=== PATIENT | male | born 1955 | race Caucasian/White ===

== ENCOUNTER 2020-09-19 22:41 | Emergency (ER) | payer BC, MEDICARE ==
[2020-09-19 23:00] VITALS: BP 173/85; PULSE 84
--- NOTE | 2020-09-19 23:24 | EDM.PDOC ---
ED HPI GENERAL MEDICAL PROBLEM - General Chief Complaint: Respiratory Problem Stated Complaint: sob headache cough chest pressurre Time Seen by Provider: 09/19/20 23:16 - History of Present Illness INITIAL COMMENTS - FREE TEXT/NARRATIVE: 65-year-old male presents the emergency room with increased cough chest discomfort neck and head pain. Patient is becoming more short of breath and he feels like his COPD is getting a little worse. This morning he awoke with a left neck pain and tightness radiated into his head on the left side and in towards the shoulder. He does have some intermittent chest tightness with this. Prior to this he just noticed increasing breathing difficulties. He has not had any fevers or chills. Patient is heavy smoker still smokes a pack a day. One point he was smoking over 3 packs a day and he has done this most of his life. He uses albuterol at home. Headache Pain Score (Numeric/FACES): 8 - Related Data Allergies Allergy/AdvReac Type Severity Reaction Status Date / Time Penicillins Allergy Severe Redness Verified 09/19/20 23:01 Home Meds: Home Meds Albuterol Sulfate [Proventil Hfa] 2 inh IH Q4HR PRN 09/19/20 [History] Past Medical History Respiratory History: Reports: Asthma, COPD Gastrointestinal History: Reports: Hemorrhoids - Past Surgical History GI Surgical History: Reports: Other (See Below) Other GI Surgeries/Procedures: Hemorrhoid Surgery Social & Family History - Tobacco Use Tobacco Use Status *Q: Current Every Day Tobacco User Years of Tobacco use: 49 Packs/Tins Daily: 1 - Caffeine Use Caffeine Use: Reports: Coffee - Recreational Drug Use Recreational Drug Use: No ED ROS GENERAL - Review of Systems Review Of Systems: See Below Constitutional: Denies: Fever, Chills HEENT: Reports: No Symptoms Respiratory: Reports: Shortness of Breath, Cough, Sputum Cardiovascular: Reports: Chest Pain (Remittent), Dyspnea on Exertion. Denies: Edema, Palpitations GI/Abdominal: Reports: No Symptoms : Reports: No Symptoms Musculoskeletal: Reports: No Symptoms Skin: Reports: No Symptoms Neurological: Reports: No Symptoms ED EXAM, GENERAL - Physical Exam Exam: See Below Exam Limited By: No Limitations General Appearance: Alert, No Apparent Distress Eye Exam: Bilateral Eye: Normal Inspection Ears: Normal External Exam, Normal Canal, Hearing Grossly Normal, Normal TMs Nose: Normal Inspection, Normal Mucosa, No Blood Throat/Mouth: Normal Inspection, Normal Lips, Normal Gums, Normal Oropharynx, Normal Voice, No Airway Compromise, Other (All of his teeth have been removed) Head: Atraumatic, Normocephalic Neck: Normal Inspection, Supple, Tender Lateral (He has left-sided muscle tende rness in the paraspinous muscles and the muscles more anterior). No: Non- Tender, Full Range of Motion, Lymphadenopathy (L), Lymphadenopathy (R), Tender Midline Respiratory/Chest: No Respiratory Distress, Decreased Breath Sounds. No: Crackles, Rales, Rhonchi Cardiovascular: Regular Rate, Rhythm, No Edema, No Murmur GI/Abdominal: Normal Bowel Sounds, Soft, Non-Tender Extremities: Normal Inspection, No Pedal Edema Neurological: Alert, Oriented, Normal Cognition Course - Vital Signs Last Recorded V/S: Last Vital Signs Temp 36.5 C 09/19/20 22:52 Pulse 84 09/19/20 22:52 Resp 24 H 09/19/20 22:52 BP 173/85 H 09/19/20 22:52 Pulse Ox 97 09/19/20 22:52 - Orders/Labs/Meds Orders: Active Orders 24 hr Category Date Time Status Chest 1V Frontal [CR] Stat Exams 09/19/20 23:48 Taken Labs: Laboratory Tests 09/19/20 09/19/20 09/19/20 Range/Units 23:05 23:05 23:05 WBC 8.43 (4.23-9.07) K/mm3 RBC 4.89 (4.63-6.08) M/mm3 Hgb 15.3 (13.7-17.5) gm/dl Hct 45.8 (40.1-51.0) % MCV 93.7 H D (79.0-92.2) fl MCH 31.3 (25.7-32.2) pg MCHC 33.4 (32.2-35.5) g/dl RDW Std Deviation 42.6 (35.1-43.9) fL Plt Count 188 (163-337) K/mm3 MPV 11.1 (9.4-12.3) fl Neutrophils % (Manual) 68 H (40-60) % Band Neutrophils % 1 (0-10) % Lymphocytes % (Manual) 26 (20-40) % Atypical Lymphs % 0 % Immat Monocytes % (Man) 0 Monocytes % (Manual) 4 (2-10) % Eosinophils % (Manual) 0 L (0.8-7.0) % Basophils % (Manual) 1 (0.2-1.2) Metamyelocytes % 0 Myelocytes % 0 Promyelocytes % 0 Blast Cells % 0 Plasma Cell % (Manual) 0 Nucleated RBCs 0.0 % Platelet Estimate Adequate RBC Morph Comment Normal D-Dimer, Quantitative (0.19-0.50) mg/L Sodium 134 L (136-145) mEq/L Potassium 3.6 (3.5-5.1) mEq/L Chloride 98 (98-107) mEq/L Carbon Dioxide 27 (21-32) mEq/L Anion Gap 12.6 (5-15) BUN 12 (7-18) mg/dL Creatinine 1.1 (0.7-1.3) mg/dL Est Cr Clr Drug Dosing 50.01 mL/min Estimated GFR (MDRD) > 60 (>60) mL/min BUN/Creatinine Ratio 10.9 L (14-18) Glucose 100 (80-115) mg/dL Calcium 9.4 (8.5-10.1) mg/dL Ferritin 383 (26-388) ng/ml Total Bilirubin 2.7 H (0.2-1.0) mg/dL Direct Bilirubin (0.0-0.2) mg/dl AST 25 (15-37) U/L ALT 29 (16-63) U/L Alkaline Phosphatase 98 (46-116) U/L Lactate Dehydrogenase 144 (85-227) U/L Troponin I (0.00-0.056) ng/mL C-Reactive Protein 5.6 H* (<1.0) mg/dL Total Protein 7.0 (6.4-8.2) g/dl Albumin 3.3 L (3.4-5.0) g/dl Globulin 3.7 gm/dL Albumin/Globulin Ratio 0.9 L (1-2) SARS-CoV-2 RNA (HOSSEIN) (NEGATIVE) 09/19/20 09/19/20 09/19/20 Range/Units 23:05 23:05 23:55 WBC (4.23-9.07) K/mm3 RBC (4.63-6.08) M/mm3 Hgb (13.7-17.5) gm/dl Hct (40.1-51.0) % MCV (79.0-92.2) fl MCH (25.7-32.2) pg MCHC (32.2-35.5) g/dl RDW Std Deviation (35.1-43.9) fL Plt Count (163-337) K/mm3 MPV (9.4-12.3) fl Neutrophils % (Manual) (40-60) % Band Neutrophils % (0-10) % Lymphocytes % (Manual) (20-40) % Atypical Lymphs % % Immat Monocytes % (Man) Monocytes % (Manual) (2-10) % Eosinophils % (Manual) (0.8-7.0) % Basophils % (Manual) (0.2-1.2) Metamyelocytes % Myelocytes % Promyelocytes % Blast Cells % Plasma Cell % (Manual) Nucleated RBCs % Platelet Estimate RBC Morph Comment D-Dimer, Quantitative 0.27 (0.19-0.50) mg/L Sodium (136-145) mEq/L Potassium (3.5-5.1) mEq/L Chloride (98-107) mEq/L Carbon Dioxide (21-32) mEq/L Anion Gap (5-15) BUN (7-18) mg/dL Creatinine (0.7-1.3) mg/dL Est Cr Clr Drug Dosing mL/min Estimated GFR (MDRD) (>60) mL/min BUN/Creatinine Ratio (14-18) Glucose (80-115) mg/dL Calcium (8.5-10.1) mg/dL Ferritin (26-388) ng/ml Total Bilirubin (0.2-1.0) mg/dL Direct Bilirubin 0.60 H (0.0-0.2) mg/dl AST (15-37) U/L ALT (16-63) U/L Alkaline Phosphatase (46-116) U/L Lactate Dehydrogenase (85-227) U/L Troponin I < 0.017 (0.00-0.056) ng/mL C-Reactive Protein (<1.0) mg/dL Total Protein (6.4-8.2) g/dl Albumin (3.4-5.0) g/dl Globulin gm/dL Albumin/Globulin Ratio (1-2) SARS-CoV-2 RNA (HOSSEIN) (NEGATIVE) 09/20/20 Range/Units 00:43 WBC (4.23-9.07) K/mm3 RBC (4.63-6.08) M/mm3 Hgb (13.7-17.5) gm/dl Hct (40.1-51.0) % MCV (79.0-92.2) fl MCH (25.7-32.2) pg MCHC (32.2-35.5) g/dl RDW Std Deviation (35.1-43.9) fL Plt Count (163-337) K/mm3 MPV (9.4-12.3) fl Neutrophils % (Manual) (40-60) % Band Neutrophils % (0-10) % Lymphocytes % (Manual) (20-40) % Atypical Lymphs % % Immat Monocytes % (Man) Monocytes % (Manual) (2-10) % Eosinophils % (Manual) (0.8-7.0) % Basophils % (Manual) (0.2-1.2) Metamyelocytes % Myelocytes % Promyelocytes % Blast Cells % Plasma Cell % (Manual) Nucleated RBCs % Platelet Estimate RBC Morph Comment D-Dimer, Quantitative (0.19-0.50) mg/L Sodium (136-145) mEq/L Potassium (3.5-5.1) mEq/L Chloride (98-107) mEq/L Carbon Dioxide (21-32) mEq/L Anion Gap (5-15) BUN (7-18) mg/dL Creatinine (0.7-1.3) mg/dL Est Cr Clr Drug Dosing mL/min Estimated GFR (MDRD) (>60) mL/min BUN/Creatinine Ratio (14-18) Glucose (80-115) mg/dL Calcium (8.5-10.1) mg/dL Ferritin (26-388) ng/ml Total Bilirubin (0.2-1.0) mg/dL Direct Bilirubin (0.0-0.2) mg/dl AST (15-37) U/L ALT (16-63) U/L Alkaline Phosphatase (46-116) U/L Lactate Dehydrogenase (85-227) U/L Troponin I (0.00-0.056) ng/mL C-Reactive Protein (<1.0) mg/dL Total Protein (6.4-8.2) g/dl Albumin (3.4-5.0) g/dl Globulin gm/dL Albumin/Globulin Ratio (1-2) SARS-CoV-2 RNA (HOSSEIN) Negative (NEGATIVE) - Re-Assessments/Exams Free Text/Narrative Re-Assessment/Exam: 09/20/20 03:15 The patient is doing okay at this time really is not having any chest pain and systolic neck discomfort. I believe this is muscle strain. His labs are concerning for a bilirubin that is elevated but troponin is not chest x-ray does not show any acute changes. He is not coughing any more than normal and his Covid test is negative. I discussed this with the patient and recommend that he talk to his regular physician about possible stress testing and follow-up on his bilirubin. Departure - Departure Time of Disposition: 03:16 Disposition: Home, Self-Care 01 Clinical Impression: Cervical strain, acute - Discharge Information Referrals: Mariela Owens MD [Primary Care Provider] - Forms: ED Department Discharge Additional Instructions: Return to the emergency room with any questions problems or worsening symptoms. Follow-up with your regular physician this next week discuss your bilirubin being elevated and see if further work-up is needed for this. Discussed the need for further heart stress testing. Start MiraLAX 1 capful daily to help your hemorrhoids get better. Quit or decrease smoking. Sepsis Event Note (ED) - Evaluation Sepsis Screening Result: No Definite Risk - Focused Exam Vital Signs: Vital Signs Temp Pulse Resp BP Pulse Ox 09/19/20 22:52 36.5 C 84 24 H 173/85 H 97 - My Orders Last 24 Hours: My Active Orders 09/19/20 23:48 Chest 1V Frontal [CR] Stat - Assessment/Plan Last 24 Hours: My Active Orders 09/19/20 23:48 Chest 1V Frontal [CR] Stat
--- NOTE | 2020-09-20 09:00 | CR ---
PROCEDURE INFORMATION: Exam: XR Chest, 1 View Exam date and time: 09/19/2020 11:38 PM Age: 65 years old Clinical indication: Cough and shortness of breath TECHNIQUE: Imaging protocol: XR of the chest Views: 1 view. COMPARISON: CR Chest 1V Frontal 07/13/2016 12:42 PM FINDINGS: Lungs: Stable hyperinflation. The lungs are clear without infiltrate or vascular congestion. Pleural space: No pleural effusion. No pneumothorax. Heart/Mediastinum: No cardiomegaly. Bones/joints: Unremarkable. IMPRESSION: Hyperinflation without acute interval findings evident Thank you for allowing us to participate in the care of your patient. Dictated and Authenticated by: Damaris Rodríguez MD 09/20/2020 1:35 AM Central Time ([place] & [place]) DEMAR
== END 2020-09-20 03:30 | disposition home or self-care (01) ==
LOC: JD.ED 22:41
DX: S16.1XXA Strain of muscle, fascia and tendon at neck level, initial encounter (principal); J44.9 Chronic obstructive pulmonary disease, unspecified; F17.210 Nicotine dependence, cigarettes, uncomplicated; Z88.0 Allergy status to penicillin; Z20.828 Contact with and (suspected) exposure to other viral communicable diseases; X58.XXXA Exposure to other specified factors, initial encounter
CPT/HCPCS: 36415; 71045; 80053; 82248; 82728; 83615; 84484; 85007; 85027; 85379; 86140; 99284; U0002; 93010; 99282

== ENCOUNTER 2021-08-26 20:45 | Emergency (ER) | payer MEDICARE ==
[2021-08-26 20:59] VITALS: BP 90/64; PULSE 134
[2021-08-26] MEDS ORDERED: diphenhydrAMINE 50 MG/ML SDV IVPUSH PRN (22:01)
[2021-08-26] MEDS ORDERED: Famotidine 20 MG/2 ML SDV IVPUSH PRN (22:01)
[2021-08-26] MEDS ORDERED: methylPREDNISolone Sodium Succinate 125 MG/2 ML SDV IVPUSH PRN (22:01)
[2021-08-26] MEDS ORDERED: EPINEPHrine 1 MG/ML SDV IM PRN (22:01)
[2021-08-26] MEDS ORDERED: Sodium Chloride 0.9% 10 ML Syringe FLUSH PRN (22:01)
--- NOTE | 2021-08-26 22:09 | EDM.PDOC ---
ED HPI GENERAL MEDICAL PROBLEM - General Chief Complaint: Respiratory Problem Stated Complaint: DIFFICULTY BREATHING Time Seen by Provider: 08/26/21 21:53 Source of Information: Reports: Patient, RN Notes Reviewed History Limitations: Reports: No Limitations - History of Present Illness INITIAL COMMENTS - FREE TEXT/NARRATIVE: Patient is a 66-year-old male presents to the ER for evaluation of his COVID-19 and difficulty breathing. Patient does have a history of COPD as well. He is on albuterol and a chronic steroid inhaler. States that he was going to see his primary care provider sometime this week but notes that he felt sick enough yesterday that he went to the walk-in clinic. States he was tested for COVID- 19, and given 2 different medications for his underlying COPD and discharged home. He was called today and they did tell him that he was Covid positive. States that it was very hard to breathe so he came to the ER for evaluation. Patient has been sick since about Tuesday, August 24, 2021. Patient is not vaccinated for COVID-19. States he did not think he had COVID last year as well. - Related Data Allergies Allergy/AdvReac Type Severity Reaction Status Date / Time Penicillins Allergy Severe Redness Verified 09/19/20 23:01 Home Meds: Home Meds Albuterol Sulfate [Proventil Hfa] 2 inh IH Q4HR PRN 09/19/20 [History] Fluticasone/Umeclidin/Vilanter [Trelegy Ellipta 200-62.5-25] 1 puff INH DAILY 08/26/21 [History] predniSONE [Prednisone] 0 mg PO DAILY 08/26/21 [History] Past Medical History Respiratory History: Reports: Asthma, COPD Gastrointestinal History: Reports: Hemorrhoids - Past Surgical History GI Surgical History: Reports: Other (See Below) Other GI Surgeries/Procedures: Hemorrhoid Surgery Social & Family History - Caffeine Use Caffeine Use: Reports: Coffee ED ROS GENERAL - Review of Systems Review Of Systems: Comprehensive ROS is negative, except as noted in HPI. ED EXAM, GENERAL - Physical Exam Exam: See Below Exam Limited By: No Limitations General Appearance: Alert, WD/WN, No Apparent Distress Respiratory/Chest: No Respiratory Distress, Lungs Clear, No Accessory Muscle Use, Chest Non-Tender, Decreased Breath Sounds (bilaterally) Cardiovascular: Normal Peripheral Pulses, Regular Rate, Rhythm, No Edema Extremities: Normal Inspection, Normal Capillary Refill Neurological: Alert, Oriented, Normal Cognition, No Motor/Sensory Deficits Psychiatric: Normal Affect, Normal Mood Skin Exam: Warm, Dry, Intact, Normal Color, No Rash Course - Vital Signs Last Recorded V/S: Last Vital Signs Temp 98.4 F 08/26/21 20:56 Pulse 134 H 08/26/21 20:56 Resp 20 08/26/21 20:56 BP 90/64 08/26/21 20:56 Pulse Ox 93 L 08/26/21 20:56 - Orders/Labs/Meds Orders: Active Orders 24 hr Category Date Time Status Peripheral IV Care [RC] . DIRECTED Care 08/26/21 22:01 Active Vital Signs [RC] Q15M Care 08/26/21 22:01 Active Chest 1V Frontal [CR] Stat Exams 08/26/21 22:00 Taken EPINEPHrine [Adrenalin] Med 08/26/21 22:01 Active 0.3 mg IM ASDIRECTED PRN Famotidine [Pepcid] Med 08/26/21 22:01 Active 20 mg IVPUSH ASDIRECTED PRN Sodium Chloride 0.9% [Saline Flush] Med 08/26/21 22:01 Active 10 ml FLUSH ASDIRECTED PRN Sodium Chloride 0.9% [Saline Flush] Med 08/26/21 22:15 Active 30 ml FLUSH ASDIRECTED diphenhydrAMINE [Benadryl] Med 08/26/21 22:01 Active 50 mg IVPUSH ASDIRECTED PRN methylPREDNISolone Sod Succ [Solu-MEDROL] Med 08/26/21 22:01 Active 125 mg IVPUSH ASDIRECTED PRN Peripheral IV Insertion Adult [OM.PC] Routine Oth 08/26/21 22:01 Ordered Medication Orders Diphenhydramine HCl (Diphenhydramine 50 Mg/Ml Sdv) 50 mg IVPUSH ASDIRECTED PRN PRN Reason: hypersensitivity reaction Epinephrine HCl (Epinephrine 1 Mg/Ml Sdv) 0.3 mg IM ASDIRECTED PRN PRN Reason: hypersensitivity reaction Famotidine (Famotidine 20 Mg/2 Ml Sdv) 20 mg IVPUSH ASDIRECTED PRN PRN Reason: hypersensitivity reaction Methylprednisolone Sodium Succinate (Methylprednisolone Sodium Succinate 125 Mg/2 Ml Sdv) 125 mg IVPUSH ASDIRECTED PRN PRN Reason: hypersensitivity reaction Sodium Chloride (Sodium Chloride 0.9% 10 Ml Syringe) 30 ml FLUSH ASDIRECTED LOTTIE Sodium Chloride (Sodium Chloride 0.9% 10 Ml Syringe) 10 ml FLUSH ASDIRECTED PRN PRN Reason: Keep Vein Open Labs: Laboratory Tests 08/26/21 08/26/21 08/26/21 Range/Units 22:18 22:18 22:18 WBC 4.95 (4.23-9.07) K/mm3 RBC 4.98 (4.63-6.08) M/mm3 Hgb 16.2 (13.7-17.5) gm/dl Hct 46.9 (40.1-51.0) % MCV 94.2 H (79.0-92.2) fl MCH 32.5 H (25.7-32.2) pg MCHC 34.5 (32.2-35.5) g/dl RDW Std Deviation 44.5 H (35.1-43.9) fL Plt Count 134 L (163-337) K/mm3 MPV 10.4 (9.4-12.3) fl Neut % (Auto) 67.5 (34.0-67.9) % Lymph % (Auto) 23.0 (21.8-53.1) % Carlton % (Auto) 9.1 (5.3-12.2) % Eos % (Auto) 0 L (0.8-7.0) Baso % (Auto) 0.2 (0.1-1.2) % Neut # (Auto) 3.34 (1.78-5.38) K/mm3 Lymph # (Auto) 1.14 L (1.32-3.57) K/mm3 Carlton # (Auto) 0.45 (0.30-0.82) K/mm3 Eos # (Auto) 0.00 L (0.04-0.54) K/mm3 Baso # (Auto) 0.01 (0.01-0.08) K/mm3 Sodium 133 L (136-145) mEq/L Potassium 4.1 (3.5-5.1) mEq/L Chloride 97 L (98-107) mEq/L Carbon Dioxide 29 (21-32) mEq/L Anion Gap 11.1 (5-15) BUN 7 (7-18) mg/dL Creatinine 1.3 (0.7-1.3) mg/dL Est Cr Clr Drug Dosing 40.68 mL/min Estimated GFR (MDRD) 55 (>60) mL/min BUN/Creatinine Ratio 5.4 L (14-18) Glucose 104 H (70-99) mg/dL Calcium 8.8 (8.5-10.1) mg/dL Magnesium 1.5 L (1.8-2.4) mg/dL Total Bilirubin 0.7 (0.2-1.0) mg/dL AST 47 H (15-37) U/L ALT 39 (16-63) U/L Alkaline Phosphatase 96 (46-116) U/L C-Reactive Protein <0.2 (<1.0) mg/dL Total Protein 6.8 (6.4-8.2) g/dl Albumin 3.1 L (3.4-5.0) g/dl Globulin 3.7 gm/dL Albumin/Globulin Ratio 0.8 L (1-2) Meds: Medications Generic Name Dose Route Start Last Admin Trade Name Freq PRN Reason Stop Dose Admin Diphenhydramine HCl 50 mg 08/26/21 22:01 Diphenhydramine 50 Mg/Ml Sdv IVPUSH ASDIRECTED PRN hypersensitivity reaction Epinephrine HCl 0.3 mg 08/26/21 22:01 Epinephrine 1 Mg/Ml Sdv IM ASDIRECTED PRN hypersensitivity reaction Famotidine 20 mg 08/26/21 22:01 Famotidine 20 Mg/2 Ml Sdv IVPUSH ASDIRECTED PRN hypersensitivity reaction Methylprednisolone Sodium Succinate 125 mg 08/26/21 22:01 Methylprednisolone Sodium Succinate 125 Mg/2 Ml Sdv IVPUSH ASDIRECTED PRN hypersensitivity reaction Sodium Chloride 30 ml 08/26/21 22:15 Sodium Chloride 0.9% 10 Ml Syringe FLUSH ASDIRECTED LOTTIE Sodium Chloride 10 ml 08/26/21 22:01 Sodium Chloride 0.9% 10 Ml Syringe FLUSH ASDIRECTED PRN Keep Vein Open Discontinued Medications Generic Name Dose Route Start Last Admin Trade Name Freq PRN Reason Stop Dose Admin CASIRIVIMAB/IMDEVIMAB 10 ml/ 110 mls @ 220 mls/hr 08/26/21 22:01 08/26/21 22:40 Sodium Chloride IV 08/26/21 22:30 220 mls/hr ONETIME ONE Administration - Re-Assessments/Exams Free Text/Narrative Re-Assessment/Exam: 08/26/21 22:08 Patient presents to the ER for the evaluation of his COVID-19. I spoke with the patient to provide information about monoclonal antibody treatment. I offered them the "Patient and caregiver [facility] monoclonal antibody fact sheet" to read and review. I stated that the drug has been approved by an emergency use author ization (EUA) process and has not been fully FDA reviewed or approved. The patient meets the EUA requirements. I discussed there are other potential treatment options that are currently not FDA approved to treat COVID-19. I did offer an opportunity to ask questions and all questions were answered. The patient voiced understanding and agreed to proceed with the treatment. We will also get labs as well for ongoing management along with a chest x-ray. 08/26/21 22:[address] on Oxygen at the time of triage d/t his respiratory difficulty. He was not hypoxic on RA, O2 sats were 92-93%. Triage nurse did place him on oxygen at that time, and he has been titrated down to 2LNC and O2 sats are stable at 98%, will continue to try to titrate down. 08/26/21 23:11 Patient was placed back on to room air, and his O2 sats did get as low as about 91% on room air. RT did come over and tested him for qualification for oxygen through [facility] rehab services, and he did not meet qualifications as his oxygen level did not go below 88%. Patient states that he is subjectively feels better with oxygen and is willing to self-pay. I did call [facility] through [facility] in [place] and they think they would be able to accommodate this patient. They were requesting a facesheet to be faxed, and that he contact them tomorrow or that they will reach out tomorrow to get him set up. Departure - Departure Time of Disposition: 23:13 Disposition: Home, Self-Care 01 Condition: Good Clinical Impression: COVID-19, COPD exacerbation - Discharge Information *PRESCRIPTION DRUG MONITORING PROGRAM REVIEWED*: No *COPY OF PRESCRIPTION DRUG MONITORING REPORT IN PATIENT TROY: No Instructions: 10 Things You Can Do to Manage Your COVID-19 Symptoms at Home - [facility] (05/16/2021) Referrals: Mariela Owens MD [Primary Care Provider] - Forms: ED Department Discharge Additional Instructions: You were seen in the ER today for ongoing and/or worsening respiratory symptoms. Your chest x-ray showed no signs of pneumonia at this time. Your oxygen level was still above 90% on room air, but you did indicate that having oxygen made you subjectively breathe better, and that your dizziness and chest pressure went away. [facility] through [facility] in [place] has been contacted, and they would be able to set you up for self-pay oxygen. You will need to contact them tomorrow and possibly go to [place] to get this set up. Their telephone number is [phone]. They have been given your contact information as well, and they may be reaching out to you tomorrow. [facility] is located in [place], [place] at [address] You will likely have to go to [place] tomorrow in order to receive these supplies. You were given IV monoclonal antibody therapy at today's visit, this medication is thought to work by making you a little less sick, and helps to decrease the length of time that you are sick. Please try to increase your oral fluid intake, and eat multiple small meals throughout the day, to keep yourself healthy. You need to keep yourself nourished in order to fight off this disease. You can try a liquid diet like gatorade/powerade as well to get your electrolytes. You may take 500 mg Tylenol every hours 6 hours for pain/fever relief. Do not exceed 4000 mg Tylenol in a 24-hour time span. However, running a fever is your body's natural response to illness, and it allows the body to develop antibodies to disease, we are recommending trying to limit the use of Tylenol as much as possible to allow your body's natural immune response. Recommend you obtain a pulse oximeter and monitor your oxygen levels at home, you should place the monitor on your finger, and sit in a calm, quiet position for a few minutes and then record the number that is on the screen. If this consistently below 90% on room air without movement, this would be cause for concern to come back to the hospital for further management of your COVID-19 disease. Continue all other medication as previously prescribed by your regular care provider. Please follow all guidance set forth from [facility] of [facility], regarding isolation purposes for your disease process. General isolation times are 10 days from when you started being symptomatic. Sepsis Event Note (ED) - Focused Exam Vital Signs: Vital Signs Temp Pulse Resp BP Pulse Ox 08/26/21 20:56 98.4 F 134 H 20 90/64 93 L - My Orders Last 24 Hours: My Active Orders 08/26/21 22:00 Chest 1V Frontal [CR] Stat 08/26/21 22:01 Peripheral IV Care [RC] . DIRECTED Vital Signs [RC] Q15M EPINEPHrine [Adrenalin] 0.3 mg IM ASDIRECTED PRN Famotidine [Pepcid] 20 mg IVPUSH ASDIRECTED PRN Sodium Chloride 0.9% [Saline Flush] 10 ml FLUSH ASDIRECTED PRN diphenhydrAMINE [Benadryl] 50 mg IVPUSH ASDIRECTED PRN methylPREDNISolone Sod Succ [Solu-MEDROL] 125 mg IVPUSH ASDIRECTED PRN Peripheral IV Insertion Adult [OM.PC] Routine 08/26/21 22:15 Sodium Chloride 0.9% [Saline Flush] 30 ml FLUSH ASDIRECTED - Assessment/Plan Last 24 Hours: My Active Orders 08/26/21 22:00 Chest 1V Frontal [CR] Stat 08/26/21 22:01 Peripheral IV Care [RC] . DIRECTED Vital Signs [RC] Q15M EPINEPHrine [Adrenalin] 0.3 mg IM ASDIRECTED PRN Famotidine [Pepcid] 20 mg IVPUSH ASDIRECTED PRN Sodium Chloride 0.9% [Saline Flush] 10 ml FLUSH ASDIRECTED PRN diphenhydrAMINE [Benadryl] 50 mg IVPUSH ASDIRECTED PRN methylPREDNISolone Sod Succ [Solu-MEDROL] 125 mg IVPUSH ASDIRECTED PRN Peripheral IV Insertion Adult [OM.PC] Routine 08/26/21 22:15 Sodium Chloride 0.9% [Saline Flush] 30 ml FLUSH ASDIRECTED
[2021-08-26] MEDS ORDERED: Sodium Chloride 0.9% 10 ML Syringe FLUSH SCH (22:15)
--- NOTE | 2021-08-27 07:23 | CR ---
Chest: Portable view of the chest was obtained. Comparison: Prior chest x-ray of 07/13/16. Lung dixon are hyperinflated compatible with emphysematous change. Lungs are clear with no acute parenchymal change. Heart size and mediastinum are normal. Bony structures are osteopenic. Impression: 1. Emphysematous change. 2. Nothing acute is otherwise seen on portable chest x-ray. Diagnostic code #2
== END 2021-08-27 01:05 | disposition home or self-care (01) ==
LOC: JD.ED 20:45
DX: U07.1 COVID-19 (principal); J44.1 Chronic obstructive pulmonary disease with (acute) exacerbation; Z88.0 Allergy status to penicillin; Z79.899 Other long term (current) drug therapy
CPT/HCPCS: 36415; 71045; 80053; 83735; 85025; 86140; 99285; M0243; Q0243

== ENCOUNTER 2022-08-16 09:10 | Emergency (ER) | payer MEDICARE ==
[2022-08-16 10:01] VITALS: BP 132/89; PULSE 88
[2022-08-16] MEDS ORDERED: Albuterol/Ipratropium 3.0-0.5 MG/3 ML Neb Soln NEB ONE ×3 (10:20→11:24)
[2022-08-16] MEDS ORDERED: methylPREDNISolone Sodium Succinate 125 MG/2 ML SDV IVPUSH ONE (10:21)
== END 2022-08-16 12:56 | disposition home or self-care (01) ==
LOC: JD.ED 09:10
DX: J44.1 Chronic obstructive pulmonary disease with (acute) exacerbation (principal); Z72.0 Tobacco use; Z88.0 Allergy status to penicillin
CPT/HCPCS: 36415; 71046; 80053; 83880; 85025; 93005; 94640; 96374; 99285; J2930; J7620-GY

== ENCOUNTER 2024-11-15 14:45 | Emergency (ER) | payer MEDICARE, BC ==
[2024-11-15 15:38] VITALS: PULSE 74
[2024-11-15 16:15] LABS: BASOPHILS ABSOLUTE AUTO 0.1 K/mm3 (0.0-0.2); EOSINOPHILS ABSOLUTE AUTO 0.1 K/mm3 (0.0-0.4); EOSINOPHILS PERCENT AUTO 1.6 % (0.0-6.0); HEMATOCRIT 37.1 % (42.0-52.0); HEMOGLOBIN 12.3 gm/dl (14.0-18.0); IMMATURE GRAN ABSOLUTE AUTO 0.02 K/mm3 (0.00-0.05); IMMATURE GRAN PERCENT AUTO 0.3 % (0.0-0.4); LYMPHOCYTES ABSOLUTE AUTO 1.6 K/mm3 (1.0-4.8); LYMPHOCYTES PERCENT AUTO 25.1 % (24.0-44.0); MEAN CORPUSCULAR HEMOGLOBIN 31.9 pg (28.0-32.0); MEAN CORPUSCULAR HGB CONC 33.2 g/dl (32.0-36.0); MEAN CORPUSCULAR VOLUME 96.1 fl (83.0-99.0); MEAN PLATELET VOLUME 9.8 fl (9.4-12.4); MONOCYTES ABSOLUTE AUTO 0.6 K/mm3 (0.0-0.8); MONOCYTES PERCENT AUTO 10.3 % (0.0-8.0); NEUTROPHILS ABSOLUTE AUTO 3.8 K/mm3 (1.8-7.7); NEUTROPHILS PERCENT AUTO 61.7 % (41.0-71.0); PLATELET COUNT,PLT 168 K/mm3 (150-400); RED BLOOD CELL COUNT 3.86 M/mm3 (4.52-5.90); WHITE BLOOD CELL COUNT,WBC 6.21 K/mm3 (3.9-11.3)
[2024-11-15 16:51] LABS: A/G RATIO 0.9 (1-2); ALBUMIN 2.9 g/dl (3.4-5.0); ANION GAP 9.1 (5-15); BILIRUBIN TOTAL 0.7 mg/dL (0.2-1.0); BUN/CREATININE RATIO 7.8 (14-18); CALCIUM 8.7 mg/dL (8.5-10.1); CREATININE 0.9 mg/dL (0.7-1.3); EST CRCL DRUG DOSING (CG) 55.42 mL/min; POTASSIUM,K 4.1 mEq/L (3.5-5.1); PROTEIN TOTAL,TP 6.1 g/dl (6.4-8.2)
[2024-11-15 17:32] VITALS: BP 116/69
== END 2024-11-15 17:30 | disposition home or self-care (01) ==
LOC: JD.ED 14:45
DX: R60.0 Localized edema (principal); J44.9 Chronic obstructive pulmonary disease, unspecified; Z88.0 Allergy status to penicillin; Z79.51 Long term (current) use of inhaled steroids; Z79.52 Long term (current) use of systemic steroids; Z79.899 Other long term (current) drug therapy
CPT/HCPCS: 36415; 71045; 71045-26; 80053; 83880; 85025; 87428-QW; 93005; 99285

== ENCOUNTER 2024-11-17 13:46 | Emergency (ER) | payer MEDICARE, BC ==
[2024-11-17] MEDS ORDERED: Sodium Chloride 0.9% 10 ML Syringe FLUSH PRN (14:18)
[2024-11-17] MEDS ORDERED: Albumin 25% 12.5 GM in Premix Bag 1 BAG IV SCH (14:30)
[2024-11-17] MEDS: Furosemide 20 MG/2 ML VIAL IVPUSH ONE (14:51)
[2024-11-17 15:01] LABS: BASOPHILS ABSOLUTE AUTO 0.1 K/mm3 (0.0-0.2); BASOPHILS PERCENT AUTO 0.5 % (0.0-1.0); EOSINOPHILS ABSOLUTE AUTO 0.2 K/mm3 (0.0-0.4); EOSINOPHILS PERCENT AUTO 2.1 % (0.0-6.0); HEMATOCRIT 43.8 % (42.0-52.0); HEMOGLOBIN 14.2 gm/dl (14.0-18.0); IMMATURE GRAN ABSOLUTE AUTO 0.03 K/mm3 (0.00-0.05); IMMATURE GRAN PERCENT AUTO 0.3 % (0.0-0.4); LYMPHOCYTES ABSOLUTE AUTO 1.3 K/mm3 (1.0-4.8); LYMPHOCYTES PERCENT AUTO 14.1 % (24.0-44.0); MEAN CORPUSCULAR HEMOGLOBIN 31.3 pg (28.0-32.0); MEAN CORPUSCULAR HGB CONC 32.4 g/dl (32.0-36.0); MEAN CORPUSCULAR VOLUME 96.7 fl (83.0-99.0); MEAN PLATELET VOLUME 9.4 fl (9.4-12.4); MONOCYTES ABSOLUTE AUTO 0.8 K/mm3 (0.0-0.8); MONOCYTES PERCENT AUTO 8.1 % (0.0-8.0); NEUTROPHILS ABSOLUTE AUTO 7.1 K/mm3 (1.8-7.7); NEUTROPHILS PERCENT AUTO 74.9 % (41.0-71.0); PLATELET COUNT,PLT 175 K/mm3 (150-400); RED BLOOD CELL COUNT 4.53 M/mm3 (4.52-5.90); WHITE BLOOD CELL COUNT,WBC 9.42 K/mm3 (3.9-11.3)
[2024-11-17] MEDS: Albumin 25% 12.5 GM in Premix Bag 1 BAG IV ONE (15:11)
[2024-11-17 15:36] LABS: ALBUMIN 3.5 g/dl (3.4-5.0); ANION GAP 9.5 (5-15); BILIRUBIN TOTAL 2.9 mg/dL (0.2-1.0); BUN/CREATININE RATIO 6.7 (14-18); CREATININE 0.9 mg/dL (0.7-1.3); EST CRCL DRUG DOSING (CG) 55.42 mL/min; MAGNESIUM 1.5 mg/dL (1.8-2.4); POTASSIUM,K 4.5 mEq/L (3.5-5.1); PROTEIN TOTAL,TP 7.2 g/dl (6.4-8.2)
[2024-11-17 15:59] VITALS: PULSE 91
[2024-11-17 16:59] VITALS: BP 158/86
== END 2024-11-17 16:55 | disposition home or self-care (01) ==
LOC: JD.ED 13:46
DX: E83.42 Hypomagnesemia (principal); R60.0 Localized edema; J44.9 Chronic obstructive pulmonary disease, unspecified; F17.210 Nicotine dependence, cigarettes, uncomplicated; Z86.16 Personal history of COVID-19; Z79.51 Long term (current) use of inhaled steroids; Z88.0 Allergy status to penicillin
CPT/HCPCS: 36415; 71046; 80053; 83735; 83880; 84484; 85025; 85379; 93005; 96365; 96375; 99285; J1940; P9047; 93010; 99283